=== PATIENT | female | born 1980 | race Caucasian/White ===

== ENCOUNTER 2018-08-18 09:51 | Day surgery (SDC) | payer BC, OTHER ==
[2018-08-14 11:16] VITALS: BMI 24.4
[2018-08-18] MEDS ORDERED: Lidocaine 2% w Epi 1:100,000 Inj IJ ONE (13:45)
[2018-08-18] MEDS ORDERED: Bupivacaine 0.25% 20 ML INJ IJ ONE ×2 (13:45→15:04)
[2018-08-18] MEDS ORDERED: ceFAZolin 1 gm FROZEN Premix 1 GM/50 ML ML IVPB ONE (13:45)
[2018-08-18] MEDS ORDERED: Midazolam 2 MG/2 ML VIAL ONE (14:02)
[2018-08-18] MEDS ORDERED: Propofol 10 mg/ml Inj (20 ML) ONE (14:03)
[2018-08-18] MEDS ORDERED: Rocuronium 10 mg/ml (5 ml) ONE (15:00)
[2018-08-18] MEDS ORDERED: Oxycodone/Acetaminophen 5/325 mg Tab PO PRN (15:40)
--- NOTE | 2018-08-18 15:40 | PCM.SURG1 ---
Surgeon's Initial Post Op Note - Surgeon's Notes Surgeon: Dr. Baker Head Waiter/Waitress Banquet: Claire Bassett Type of Anesthesia: General Endo Pre-Operative Diagnosis: Cholelithiasis Operative Findings: See operative report Post-Operative Diagnosis: Same Operation Performed: Robotic Cholecystectomy Specimen/Specimens Removed: Gallbladder Estimated Blood Loss: EBL {In ML}: 10 Blood Products Given: N/A Drains Used: No Drains Post-Op Condition: Good Date of Surgery/Procedure: 08/18/18 Time of Surgery/Procedure: 15:40
[2018-08-18] MEDS: HYDROmorphone 0.5 mg/0.5 ml ISec IVP PRN ×3 (16:01→16:49)
[2018-08-18] MEDS ORDERED: Lactated Ringer's 1,000 ML IV ONE (16:30)
[2018-08-18 18:14] VITALS: PULSE 86; RESP 18
[2018-08-18 18:51] VITALS: BP 100/56; TEMP 97.8; O2SAT 99
--- NOTE | 2018-08-19 04:32 | OP ---
PROCEDURE DATE: 08/18/2018 PREOPERATIVE DIAGNOSES: Chronic cholecystitis and cholelithiasis. POSTOPERATIVE DIAGNOSES: Chronic cholecystitis and cholelithiasis. PROCEDURES DONE: 1. Robotic cholecystectomy. 2. Laparoscopic bilateral TAP block placement. SURGEON: Ariel Baker MD AVIONICS SYSTEMS ENGINEER: SHANNON Reese; and Faby Romano DO, PGY-4 resident. ANESTHESIA: General endotracheal tube anesthesia. ESTIMATED BLOOD LOSS: Around 10 mL. DRAINS: None. PATHOLOGY: Gallbladder with the gallstones was sent for the pathology. COMPLICATIONS: None. INTRAOPERATIVE FINDINGS: The patient had changes of chronic cholecystitis and cholelithiasis. DESCRIPTION OF PROCEDURE: On intraoperative steps, this is 37-year-old female, who was diagnosed with chronic cholecystitis and cholelithiasis and the patient was consented for robotic cholecystectomy, possible open, brought to the OR, and placed supine on the operating table. After induction of the anesthesia, the abdomen was prepped and draped in the usual sterile fashion. A supraumbilical transverse incision was made after incising the skin, subcutaneous tissue, and the fascia. The robotic camera port was placed. Pneumo was created. Another 3-8 mm port was placed in the upper abdomen. Robot was brought in. Camera arm as well as arm one and arm two was docked and the gallbladder was retracted cranially. Calot's triangle dissection was done. Cystic duct and cystic artery were identified. The intraoperative Firefly was used to identify the ductal anatomy. The cystic artery, cystic duct, common bile duct junction was identified. Top-down approach was done and the critical view of the safety was identified. Cystic duct and cystic artery were clipped at 3 places and cut in between 2 clips nearby gallbladder and gallbladder was dissected free from the gallbladder fossa, taken in EndoCatch bag, and taken out through the umbilical port site and sent off the table for the pathology. There was a proper hemostasis in each and every part of the procedure. Now, the robot was undocked. All the instruments were taken out. The laparoscopic bilateral TAP block was given. 30:30 mL of Marcaine was injected in the transverse abdominis muscle plane block and after that all the ports were taken out under vision. Pneumo was deflated. Umbilical port site was closed in 2 layers. The fascia with 0 Vicryl interrupted suture, skin with 4-0 Monocryl, and dry sterile dressing was applied. The patient tolerated the procedure well. Count of instrument and gauze was correct. The patient was sent to the postanesthesia care unit in stable condition after extubation. Ariel Baker MD
== END 2018-08-18 18:59 | disposition home or self-care (01) ==
LOC: C.SDS 09:51
PROVIDERS: ATTEND Surgery Surgical Critical Care
DX: K80.10 Calculus of gallbladder with chronic cholecystitis without obstruction (principal)
CPT/HCPCS: 47562; 64488; 88304; J0690; J1170; J1885; J2001; J2250; J2405; J2704; J3010; J7030; J7120